=== PATIENT | male | born 2000 | race African-American/Black ===

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

== ENCOUNTER 2022-08-28 08:14 | Emergency (ER) | payer OTHER ==
[2022-08-28] MEDS ORDERED: Acetaminophen 500 MG TAB ONE (09:11)
== END 2022-08-28 09:30 | disposition home or self-care (01) ==
LOC: NAV ERS 08:14
DX: B34.9 Viral infection, unspecified (principal)
CPT/HCPCS: 87081; 87430; 87804; 99283

== ENCOUNTER 2023-05-23 07:00 | Emergency (ER) | payer OTHER | END 2023-05-23 08:21 | disposition home or self-care (01) | LOC: NAV ERS 07:00 | DX: B34.9 Viral infection, unspecified (principal) | CPT/HCPCS: 87804; 99283 ==

== ENCOUNTER 2023-07-15 22:17 | Emergency (ER) | payer BC, OTHER | END 2023-07-15 22:45 | disposition home or self-care (01) | LOC: NAV ERS 22:17 | DX: K52.9 Noninfective gastroenteritis and colitis, unspecified (principal) | CPT/HCPCS: 99283 ==

== ENCOUNTER 2024-01-25 13:23 | Emergency (ER) | payer BC ==
[2024-01-27 13:51] LABS: SARS-CoV-2 N1 Negative; SARS-CoV-2 N2 Negative; SARS-CoV-2 RNAse P1 Positive; SARS-CoV-2 RNAse P2 Positive
== END 2024-01-25 14:40 | disposition home or self-care (01) ==
LOC: NAV ERS 13:23
DX: B34.9 Viral infection, unspecified (principal)
CPT/HCPCS: 87081; 87430; 87635; 87804; 99283

== ENCOUNTER 2025-02-04 01:51 | Emergency (ER) | payer BC | END 2025-02-04 02:20 | disposition home or self-care (01) | LOC: NAV ERS 01:51 | DX: R53.83 Other fatigue (principal); Z00.00 Encounter for general adult medical examination without abnormal findings | CPT/HCPCS: 99283 ==